=== PATIENT | male | born 1955 | race Native Hawaiian/Other Pacific Islander ===

== ENCOUNTER 2017-10-30 09:39 | Outpatient (CLI) | payer OTHER ==
[~2017-10-30 09:39] MED LIST: AMLO10TA PO; ASPIRIN325 M1 OR; BENICAR40 MG PO; VIIBRYD40 MG PO
== END 2017-10-30 21:12 | disposition home or self-care (01) ==
LOC: RAD 09:39
DX: R09.1 Pleurisy (principal)

== ENCOUNTER 2019-02-06 09:30 | Outpatient (CLI) | payer OTHER ==
[2019-02-06 09:50] LABS: PLATELET COUNT 214 K/uL (142-355)
[2019-02-06 10:13] LABS: POTASSIUM 3.9 mmol/L (3.6-5.2)
== END 2019-02-06 20:10 | disposition home or self-care (01) ==
LOC: LAB 09:30
PROVIDERS: Internal Medicine
DX: I10 Essential (primary) hypertension (principal); E03.9 Hypothyroidism, unspecified; R73.02 Impaired glucose tolerance (oral); E78.00 Pure hypercholesterolemia, unspecified; Z12.5 Encounter for screening for malignant neoplasm of prostate
CPT/HCPCS: 80053; 80061; 83036; 84153; 84439; 84443; 84550; 85027

== ENCOUNTER 2019-02-26 09:10 | Outpatient (CLI) | payer OTHER ==
[~2019-02-26] VITALS: Ht 188 cm; Wt 107.5 kg
== END 2019-02-26 20:53 | disposition home or self-care (01) ==
LOC: NM 09:10
DX: R93.1 Abnormal findings on diagnostic imaging of heart and coronary circulation (principal); R94.31 Abnormal electrocardiogram [ECG] [EKG]
CPT/HCPCS: A9500; J2785

== ENCOUNTER 2021-02-03 11:09 | Outpatient (CLI) | payer OTHER ==
[2021-02-03 11:41] LABS: PLATELET COUNT 237 K/uL (142-355)
[2021-02-03 12:02] LABS: POTASSIUM 3.5 mmol/L (3.6-5.2)
== END 2021-02-03 20:39 | disposition home or self-care (01) ==
LOC: LAB 11:09
PROVIDERS: ATTEND Psychiatry & Neurology Psychiatry
DX: F33.1 Major depressive disorder, recurrent, moderate (principal); F43.12 Post-traumatic stress disorder, chronic; Z79.899 Other long term (current) drug therapy
CPT/HCPCS: 36415; 80053; 80061; 82607; 82746; 84443; 85027

== ENCOUNTER 2022-02-01 08:55 | Outpatient (CLI) | payer OTHER ==
[2022-02-01 09:18] LABS: PLATELET COUNT 201 K/uL (142-355)
[2022-02-01 09:46] LABS: POTASSIUM 3.9 mmol/L (3.6-5.2)
== END 2022-02-01 19:54 | disposition home or self-care (01) ==
LOC: LABW 08:55
PROVIDERS: ATTEND Psychiatry & Neurology Psychiatry
DX: F33.1 Major depressive disorder, recurrent, moderate (principal); F43.12 Post-traumatic stress disorder, chronic; Z79.899 Other long term (current) drug therapy; I10 Essential (primary) hypertension; R73.02 Impaired glucose tolerance (oral); E03.8 Other specified hypothyroidism
CPT/HCPCS: 36415; 80053; 80061; 81002; 82306; 82607; 82746; 83036; 84439; 84443; 85027

== ENCOUNTER 2022-04-27 09:23 | Outpatient (CLI) | payer OTHER | END 2022-04-27 19:24 | disposition home or self-care (01) | LOC: CT 09:23 | PROVIDERS: ATTEND Internal Medicine | DX: R51.9 Headache, unspecified (principal) ==

== ENCOUNTER 2022-06-22 09:31 | Outpatient (CLI) | payer OTHER | END 2022-06-22 17:00 | disposition home or self-care (01) | LOC: MRI 09:31 | PROVIDERS: ATTEND Internal Medicine | DX: R51.9 Headache, unspecified (principal) | CPT/HCPCS: 36415; 82565; 84520; A9576 ==